=== PATIENT | male | born 1970 | race Caucasian/White ===

== ENCOUNTER 2017-01-23 04:04 | Inpatient (IN) | payer OTHER ==
[~2017-01-23] VITALS: Ht 165.1 cm; Wt 117.0 kg
[~2017-01-23 04:04] MED LIST: AMIODARONE HCL100 MG PO; ATI0.5 PO; DILTIAZEM60 M1 PO; METOPROLOL SUC100 M2 PO; METOPROLOL SUC200 M2 PO; MEV20 PO; TEN25 PO; TOPROL XL200 MG PO; ZES20 PO; ZESTRIL20 MG PO; ZESTRIL5 MG PO
[2017-01-23 04:45] LABS: BASOPHIL % 0.5 % (0-2); PLATELET COUNT 231 x10^3mcL (130-400); RED CELL DISTRIBUTION WIDTH 13.2 % (11.5-14.5)
[2017-01-23 04:48] LABS: CALCIUM 8.3 mg/dL (8.5-10.1); CARBON DIOXIDE 25.8 mmol/L (21-32); CHLORIDE SERUM 107 mmol/L (98-107); CREATININE SERUM 1.1 mg/dL (0.7-1.3); GFR1 > 60 mL/min; GLUCOSE SERUM 101 mg/dL (74-106); POTASSIUM SERUM 3.8 mmol/L (3.5-5.1); SODIUM SERUM 142 mmol/L (136-145)
[2017-01-23 04:51] LABS: AMPHETAMINE QUAL UR NONE DETECTED (NEG <=1000)
[2017-01-23 05:04] LABS: FREE T4 1.37 ng/dL (0.76-1.46)
[2017-01-23] MEDS ORDERED: METOPROLOL SUC200 M2 PO (06:46)
[2017-01-23] MEDS ORDERED: AMIODARONE HCL200 MG PO (06:46)
[2017-01-23] MEDS ORDERED: SIMVASTATIN10 M1 PO (06:47)
[2017-01-23] MEDS ORDERED: GOOD SENSE OMEP20 MG PO (06:47)
[2017-01-23] MEDS ORDERED: LISINOPRIL10 MG PO (06:47)
[2017-01-23] MEDS ORDERED: ASPIR 8181 MG PO (06:47)
[2017-01-23 07:17] LABS: T3 TOTAL 1.44 ng/mL
[2017-01-23 07:22] VITALS: BP 117/75
[2017-01-23 07:41] LABS: PHOSPHOROUS 3.5 mg/dL (2.5-4.9)
[2017-01-23 07:44] LABS: CHOLESTEROL/HDL RATIO 2.4
[2017-01-23 07:51] LABS: FREE T4 1.29 ng/dL (0.76-1.46); T4(THYROXINE) 11.1 ug/dL (4.7-13.3)
[2017-01-23 11:20] VITALS: BP 117/75
== END 2017-01-23 10:35 | disposition left against medical advice (07) | DRG 201 ==
LOC: ED 04:04 → DU 06:30
PROVIDERS: Emergency Medicine; ADMIT Family Medicine
DX: I48.2 Chronic atrial fibrillation (principal); Z68.41 Body mass index [BMI] 40.0-44.9, adult; I10 Essential (primary) hypertension; E03.9 Hypothyroidism, unspecified; K21.9 Gastro-esophageal reflux disease without esophagitis; F41.9 Anxiety disorder, unspecified; E78.5 Hyperlipidemia, unspecified; E66.01 Morbid (severe) obesity due to excess calories; Z53.20 Procedure and treatment not carried out because of patient's decision for unspecified reasons; Z79.82 Long term (current) use of aspirin
CPT/HCPCS: 80307; 83880; 84439; C9113; J2060

== ENCOUNTER 2017-03-05 03:32 | Emergency (ER) | payer OTHER ==
[~2017-03-05 03:32] MED LIST changes: +AMIODARONE HCL200 MG PO; +ASPIR 8181 MG PO; +GOOD SENSE OMEP20 MG PO; +LISINOPRIL10 MG PO; +LORAZEPAM0.5 MG PO; +SIMVASTATIN10 M1 PO; +VITAMIN-D1000 IU PO
[2017-03-05 04:00] LABS: BASOPHIL % 0.4 % (0-2); PLATELET COUNT 218 x10^3mcL (130-400); RED CELL DISTRIBUTION WIDTH 13.2 % (11.5-14.5)
[2017-03-05 04:23] LABS: CALCIUM 8.5 mg/dL (8.5-10.1); CARBON DIOXIDE 25.2 mmol/L (21-32); CHLORIDE SERUM 104 mmol/L (98-107); CREATININE SERUM 1.2 mg/dL (0.7-1.3); GFR1 > 60 mL/min; GLUCOSE SERUM 110 mg/dL (74-106); POTASSIUM SERUM 3.8 mmol/L (3.5-5.1); SODIUM SERUM 137 mmol/L (136-145)
[2017-03-05 04:26] LABS: ALBUMIN 3.1 g/dL (3.4-5.0); ALKALINE PHOSPHATASE 92 U/L (46-116); ALT/SGPT 21 U/L (16-63); AST/SGOT 12 U/L (15-37); BILIRUBIN TOTAL 0.2 mg/dL (0.20-1.00); CHOLESTEROL 129 mg/dL (<200); HDL CHOLESTEROL 54 mg/dL (40-60); PHOSPHOROUS 3.3 mg/dL (2.5-4.9); TOTAL PROTEIN, SERUM 6.9 g/dL (6.4-8.2); URIC ACID 4.8 mg/dL (3.5-7.2)
[2017-03-05 04:47] VITALS: BP 148/76
== END 2017-03-05 04:47 | disposition home or self-care (01) ==
LOC: ED 03:32
PROVIDERS: Emergency Medicine
DX: R00.2 Palpitations (principal); F41.9 Anxiety disorder, unspecified; I48.91 Unspecified atrial fibrillation; E78.5 Hyperlipidemia, unspecified
CPT/HCPCS: 36415; 83880

== ENCOUNTER 2017-05-14 04:44 | Observation (INO) | payer OTHER ==
[~2017-05-14] VITALS: Ht 165.1 cm; Wt 124.4 kg
[2017-05-14 05:22] LABS: BASOPHIL % 0.6 % (0-2); PLATELET COUNT 228 x10^3mcL (130-400); RED CELL DISTRIBUTION WIDTH 13.4 % (11.5-14.5)
[2017-05-14 05:29] LABS: CALCIUM 8.7 mg/dL (8.5-10.1); CARBON DIOXIDE 22.5 mmol/L (21-32); CHLORIDE SERUM 105 mmol/L (98-107); CREATININE SERUM 1.1 mg/dL (0.7-1.3); GFR1 > 60 mL/min; GLUCOSE SERUM 110 mg/dL (74-106); POTASSIUM SERUM 3.9 mmol/L (3.5-5.1); SODIUM SERUM 140 mmol/L (136-145)
[2017-05-14 05:43] LABS: ALBUMIN 3.4 g/dL (3.4-5.0); ALKALINE PHOSPHATASE 99 U/L (46-116); ALT/SGPT 27 U/L (16-63); AST/SGOT 21 U/L (15-37); BILIRUBIN TOTAL 0.33 mg/dL (0.20-1.00); CHOLESTEROL 139 mg/dL (<200); HDL CHOLESTEROL 53 mg/dL (40-60); PHOSPHOROUS 3.7 mg/dL (2.5-4.9); TOTAL PROTEIN, SERUM 7.4 g/dL (6.4-8.2); URIC ACID 5.4 mg/dL (3.5-7.2)
[2017-05-14 08:19] LABS: MAGNESIUM 2.1 mg/dL (1.8-2.4)
[2017-05-14 08:21] VITALS: BP 139/78
[2017-05-14 08:29] LABS: FREE T4 1.45 ng/dL (0.76-1.46); FREE THYROXINE INDEX 4.3 ug/dL (1.4-4.5); T4(THYROXINE) 11.5 ug/dL (4.7-13.3)
[2017-05-14 08:37] LABS: T3 TOTAL 1.28 ng/mL
== END 2017-05-14 09:24 | disposition left against medical advice (07) | DRG 309 ==
LOC: ED 04:44 → DU 06:03
PROVIDERS: Emergency Medicine; ADMIT Family Medicine
DX: I48.0 Paroxysmal atrial fibrillation (principal); Z68.45 Body mass index [BMI] 70 or greater, adult; F41.9 Anxiety disorder, unspecified; K21.9 Gastro-esophageal reflux disease without esophagitis; I10 Essential (primary) hypertension; E78.5 Hyperlipidemia, unspecified; Z79.82 Long term (current) use of aspirin; Z53.29 Procedure and treatment not carried out because of patient's decision for other reasons
CPT/HCPCS: 83880; 84439; G0378; J2060; J7030

== ENCOUNTER 2017-06-05 04:01 | Inpatient (IN) | payer OTHER ==
[~2017-06-05] VITALS: Ht 165.1 cm; Wt 124.7 kg
--- NOTE | 2017-06-05 04:21 | NUR ---
PT C/O PALPITATIONS THAT BEGAN THIS AM. PT STATES GETTING UP TO GO TO THE RESTROOM AND WHEN RETURNING TO BED PT NOTED "HAVING A FIB". PT CHANGED INTO GOWN AND IS IN ROOM TALKING TO NURSE. NO DIFFICULTY BREATHING NOTED AT THIS TIME. PT IN ROOM WAITING TO BE SEEN BY ER MD. NO DISTRESS NOTED AT THIS TIME.
--- NOTE | 2017-06-05 04:25 | NUR ---
DR MARINELLI AT BEDSIDE FOR MSE.
[2017-06-05 04:44] LABS: BASOPHIL % 0.6 % (0-2); PLATELET COUNT 224 x10^3mcL (130-400); RED CELL DISTRIBUTION WIDTH 13.4 % (11.5-14.5)
[2017-06-05 04:52] LABS: CALCIUM 8.5 mg/dL (8.5-10.1); CARBON DIOXIDE 26.7 mmol/L (21-32); CHLORIDE SERUM 104 mmol/L (98-107); GFR1 > 60 mL/min; GLUCOSE SERUM 101 mg/dL (74-106); POTASSIUM SERUM 3.8 mmol/L (3.5-5.1); SODIUM SERUM 138 mmol/L (136-145)
[2017-06-05 05:08] LABS: ALKALINE PHOSPHATASE 82 U/L (46-116); ALT/SGPT 26 U/L (16-63); AST/SGOT 18 U/L (15-37); BILIRUBIN TOTAL 0.28 mg/dL (0.20-1.00); TOTAL PROTEIN, SERUM 7.1 g/dL (6.4-8.2)
[2017-06-05 05:09] LABS: ALBUMIN 3.2 g/dL (3.4-5.0)
--- NOTE | 2017-06-05 05:51 | NUR ---
DR MARINELLI AT BEDSIDE DISCUSSING PLAN OF CARE.
[2017-06-05] MEDS ORDERED: SIMVASTATIN10 M1 PO (05:58)
--- NOTE | 2017-06-05 06:14 | NUR ---
PT GIVEN IV MED PER DR MARINELLI ORDERS. PT EDUCATED ON MED AND VERBALIZED UNDERSTANDING OF TEACHING. IV SITE PATENT WITH NO COMPLICATIONS NOTED. PT DENIES ANY ALLERGIES TO MED. PT AAOX4, BREATHING EVEN AND UNLABORED NOTED AT THIS TIME. MOM AT BEDSIDE.
--- NOTE | 2017-06-05 06:21 | NUR ---
ADMISSION REPORT GIVEN TO LINDSA[facility] BROWN EXT [id number] TO CONTINUE CARE.
--- NOTE | 2017-06-05 06:22 | NUR ---
NIGHT TIME BABYSITTER AT BEDSIDE.
[2017-06-05 06:27] LABS: CHOLESTEROL/HDL RATIO 2.7; PHOSPHOROUS 3.6 mg/dL (2.5-4.9)
--- NOTE | 2017-06-05 07:35 | NUR ---
RECEIVED PT FROM NIGHT NURSE IN NO ACUTE DISTRESS. PT ASLEEP, RESPIRATIONS EVEN AND UNLABORED ON 2L O2 VIA NC. IVF INFUSING AT BEDSIDE. BED IN LOWEST POSITION. CALL LIGHT WITHIN REACH. WILL CONTINUE TO MONITOR.
[2017-06-05 07:52] VITALS: BP 144/78
[2017-06-05 07:55] VITALS: BP 144/78
[2017-06-05 09:22] VITALS: BP 128/70
--- NOTE | 2017-06-05 10:25 | NUR ---
ECHO COMPLETED.DR RODRIGUEZ,HERE TO SEE PT STATES DR KIRKPATRICK TO READ ECHO.
[2017-06-05 10:48] LABS: T3 TOTAL 1.21 ng/mL
[2017-06-05 10:50] LABS: FREE T4 1.58 ng/dL (0.76-1.46); FREE THYROXINE INDEX 4.7 ug/dL (1.4-4.5); T4(THYROXINE) 11.4 ug/dL (4.7-13.3)
--- NOTE | 2017-06-05 11:57 | NUR ---
DR. RODRIGUEZ CAME IN TO TALK TO PT REGARDING TEST RESULTS. PT BECAME VERY UPSET, RAISING HIS VOICE AND STATED "NOBODY CAME IN TO TELL ME EARLIER." YELLING AND TALKING OVER THE DR. PT WANTED TO SIGN AMA, DR. RODRIGUEZ EXPLAINED RISKS TO PT. PT VERY RESISTANT TO EXPLANATION AND REPEATEDLY INTERRUPTING DR. PT INSISTED ON SIGNING AMA. AMA FORM SIGNED AND PLACED IN CHART. IV DC'D INTACT. TELE REMOVED. WILL CONTINUE TO MONITOR.
--- NOTE | 2017-06-05 12:05 | NUR ---
PT LEFT FLOOR AMA. AMA FORM SIGNED AND IN CHART. RESPIRATIONS EVEN AND UNLABORED ON RA. PT AMBULATORY, REFUSED TO BE ESCORTED DOWNSTAIRS. PT WAS EXPLAINED RISKS OF LEAVING BY DR. RODRIGUEZ. IV D/C INTACT. TELE REMOVED. PT GIVEN NEW PRESCRIPTION. INSTRUCTED TO FOLLOW UP WITH PCP.
--- NOTE | 2017-06-05 12:05 | NUR ---
PT LEFT AMA. 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 RX GIVEN REQUESTED BY PT.
== END 2017-06-05 12:07 | disposition left against medical advice (07) | DRG 309 ==
LOC: ED 04:01 → DU 05:49
PROVIDERS: Emergency Medicine; ADMIT Family Medicine
DX: I48.2 Chronic atrial fibrillation (principal); E44.1 Mild protein-calorie malnutrition; Z68.42 Body mass index [BMI] 45.0-49.9, adult; E72.20 Disorder of urea cycle metabolism, unspecified; Z53.21 Procedure and treatment not carried out due to patient leaving prior to being seen by health care provider; E78.5 Hyperlipidemia, unspecified; F41.9 Anxiety disorder, unspecified; E78.00 Pure hypercholesterolemia, unspecified; I10 Essential (primary) hypertension; Z53.29 Procedure and treatment not carried out because of patient's decision for other reasons; Z79.82 Long term (current) use of aspirin; Z79.899 Other long term (current) drug therapy; Z83.3 Family history of diabetes mellitus; Z80.3 Family history of malignant neoplasm of breast; Z82.49 Family history of ischemic heart disease and other diseases of the circulatory system
CPT/HCPCS: 83880; 84439; J2060; J7030; Q0092

== ENCOUNTER 2017-09-25 06:30 | Emergency (ER) | payer OTHER ==
[~2017-09-25] VITALS: Ht 165.1 cm; Wt 121.6 kg
[2017-09-25 06:35] VITALS: Ht 165.1 cm; Wt 121.6 kg
[2017-09-25 08:54] VITALS: BP 122/66
== END 2017-09-25 08:53 | disposition home or self-care (01) ==
LOC: ED 06:30
DX: I48.91 Unspecified atrial fibrillation (principal); E78.5 Hyperlipidemia, unspecified; I10 Essential (primary) hypertension
CPT/HCPCS: J2060

== ENCOUNTER 2017-11-08 05:35 | Emergency (ER) | payer OTHER ==
[~2017-11-08] VITALS: Ht 165.1 cm; Wt 117.6 kg
[2017-11-08 05:38] VITALS: Ht 165.1 cm; Wt 117.6 kg
[2017-11-08 06:33] LABS: CALCIUM 8.7 mg/dL (8.5-10.1); CHLORIDE SERUM 106 mmol/L (98-107); CREATININE SERUM 0.8 mg/dL (0.7-1.3); GFR1 > 60 mL/min; GLUCOSE SERUM 106 mg/dL (74-106); POTASSIUM SERUM 3.6 mmol/L (3.5-5.1); SODIUM SERUM 141 mmol/L (136-145)
[2017-11-08 06:37] LABS: BASOPHIL % 0.5 % (0-2); PLATELET COUNT 235 x10^3mcL (130-400); RED CELL DISTRIBUTION WIDTH 12.3 % (11.5-14.5)
[2017-11-08 06:46] LABS: FREE T4 2.54 ng/dL (0.76-1.46); MAGNESIUM 1.9 mg/dL (1.8-2.4)
[2017-11-08 06:50] VITALS: BP 111/74
== END 2017-11-08 07:16 | disposition home or self-care (01) ==
LOC: ED 05:35
PROVIDERS: Emergency Medicine
DX: I48.0 Paroxysmal atrial fibrillation (principal); I10 Essential (primary) hypertension; E78.00 Pure hypercholesterolemia, unspecified; E78.5 Hyperlipidemia, unspecified; Z86.79 Personal history of other diseases of the circulatory system
CPT/HCPCS: 36415; 84439

== ENCOUNTER 2017-12-02 05:40 | Emergency (ER) | payer OTHER ==
[~2017-12-02] VITALS: Ht 165.1 cm; Wt 118.8 kg
[2017-12-02 05:46] VITALS: Ht 165.1 cm; Wt 118.8 kg
[2017-12-02 07:05] LABS: BASOPHIL % 0.6 % (0-2); PLATELET COUNT 233 x10^3mcL (130-400); RED CELL DISTRIBUTION WIDTH 12.7 % (11.5-14.5)
[2017-12-02 07:17] LABS: T3 TOTAL 1.9 ng/mL
[2017-12-02 07:19] LABS: FREE THYROXINE INDEX 4.3 ug/dL (1.4-4.5); T4(THYROXINE) 12.4 ug/dL (4.7-13.3)
[2017-12-02 07:43] LABS: ALBUMIN 3.3 g/dL (3.4-5.0); ALKALINE PHOSPHATASE 84 U/L (46-116); ALT/SGPT 39 U/L (16-63); AST/SGOT 24 U/L (15-37); BILIRUBIN TOTAL 0.81 mg/dL (0.20-1.00); CALCIUM 9.2 mg/dL (8.5-10.1); CARBON DIOXIDE 27.6 mmol/L (21-32); CHLORIDE SERUM 106 mmol/L (98-107); CHOLESTEROL 126 mg/dL (<200); CHOLESTEROL/HDL RATIO 2.6; CREATININE SERUM 0.9 mg/dL (0.7-1.3); GFR1 > 60 mL/min; HDL CHOLESTEROL 48 mg/dL (40-60); LIPASE 110 IU/L (73-393); POTASSIUM SERUM 4.1 mmol/L (3.5-5.1); SODIUM SERUM 141 mmol/L (136-145); TOTAL PROTEIN, SERUM 7.1 g/dL (6.4-8.2); TRIGLYCERIDES 50 mg/dL (<150)
[2017-12-02 07:47] LABS: GLUCOSE SERUM 105 mg/dL (74-106)
[2017-12-02 09:08] VITALS: BP 95/56
== END 2017-12-02 09:08 | disposition home or self-care (01) ==
LOC: ED 05:40
PROVIDERS: Specialist
DX: I48.0 Paroxysmal atrial fibrillation (principal); I10 Essential (primary) hypertension; E78.00 Pure hypercholesterolemia, unspecified
CPT/HCPCS: 83880; 84439; J2060; J3490; J7030; Q0092

== ENCOUNTER 2017-12-27 12:57 | Emergency (ER) | payer OTHER ==
[~2017-12-27] VITALS: Ht 167.6 cm; Wt 118.4 kg
[2017-12-27 12:58] VITALS: Ht 167.6 cm; Wt 118.4 kg
[2017-12-27 13:34] LABS: BASOPHIL % 0.5 % (0-2); PLATELET COUNT 224 x10^3mcL (130-400); RED CELL DISTRIBUTION WIDTH 13.6 % (11.5-14.5)
[2017-12-27 13:38] LABS: CALCIUM 8.9 mg/dL (8.5-10.1); CARBON DIOXIDE 28.5 mmol/L (21-32); CHLORIDE SERUM 103 mmol/L (98-107); GFR1 > 60 mL/min; GLUCOSE SERUM 102 mg/dL (74-106); POTASSIUM SERUM 4.1 mmol/L (3.5-5.1); SODIUM SERUM 138 mmol/L (136-145)
[2017-12-27 13:42] LABS: ALKALINE PHOSPHATASE 83 U/L (46-116); ALT/SGPT 34 U/L (16-63); AST/SGOT 23 U/L (15-37); BILIRUBIN TOTAL 0.36 mg/dL (0.20-1.00); TOTAL PROTEIN, SERUM 7.2 g/dL (6.4-8.2)
[2017-12-27 13:43] LABS: ALBUMIN 3.3 g/dL (3.4-5.0)
[2017-12-27 14:07] VITALS: BP 131/84
== END 2017-12-27 15:25 | disposition home or self-care (01) ==
LOC: ED 12:57
PROVIDERS: Emergency Medicine
DX: F41.9 Anxiety disorder, unspecified (principal); I48.91 Unspecified atrial fibrillation; E78.5 Hyperlipidemia, unspecified; E78.00 Pure hypercholesterolemia, unspecified; I10 Essential (primary) hypertension; Z86.79 Personal history of other diseases of the circulatory system
CPT/HCPCS: 83880; J2060

== ENCOUNTER 2018-01-21 22:05 | Emergency (ER) | payer OTHER ==
[~2018-01-21] VITALS: Ht 172.7 cm; Wt 116.6 kg
[2018-01-21 22:09] VITALS: Ht 172.7 cm; Wt 116.6 kg
[2018-01-22 00:09] LABS: BASOPHIL % 0.6 % (0-2); PLATELET COUNT 237 x10^3mcL (130-400); RED CELL DISTRIBUTION WIDTH 13.5 % (11.5-14.5)
[2018-01-22 00:22] LABS: CALCIUM 8.5 mg/dL (8.5-10.1); CARBON DIOXIDE 27.9 mmol/L (21-32); CHLORIDE SERUM 106 mmol/L (98-107); GFR1 > 60 mL/min; GLUCOSE SERUM 110 mg/dL (74-106); POTASSIUM SERUM 3.9 mmol/L (3.5-5.1); SODIUM SERUM 139 mmol/L (136-145)
[2018-01-22 00:25] LABS: AMPHETAMINE QUAL UR NONE DETECTED (NEG <=1000)
[2018-01-22 01:45] VITALS: BP 107/65
== END 2018-01-22 01:45 | disposition home or self-care (01) ==
LOC: ED 22:05
PROVIDERS: Emergency Medicine
DX: I48.91 Unspecified atrial fibrillation (principal); I10 Essential (primary) hypertension; E78.00 Pure hypercholesterolemia, unspecified; E78.5 Hyperlipidemia, unspecified
CPT/HCPCS: 36415; 83880; 84439; J7030

== ENCOUNTER 2018-02-14 12:01 | Emergency (ER) | payer OTHER ==
[~2018-02-14] VITALS: Ht 167.6 cm; Wt 117.9 kg
[2018-02-14 12:03] VITALS: Ht 167.6 cm; Wt 117.9 kg
[2018-02-14 12:45] VITALS: BP 136/84
== END 2018-02-14 12:45 | disposition home or self-care (01) ==
LOC: ED 12:01
DX: R00.2 Palpitations (principal); I10 Essential (primary) hypertension

== ENCOUNTER 2018-05-09 06:19 | Emergency (ER) | payer OTHER ==
[2018-05-09 07:23] LABS: BASOPHIL % 0.4 % (0-2); PLATELET COUNT 223 x10^3mcL (130-400); RED CELL DISTRIBUTION WIDTH 13.3 % (11.5-14.5)
[2018-05-09 07:30] LABS: CALCIUM 8.6 mg/dL (8.5-10.1); CARBON DIOXIDE 25.8 mmol/L (21-32); CHLORIDE SERUM 105 mmol/L (98-107); CREATININE SERUM 0.8 mg/dL (0.7-1.3); GFR1 > 60 mL/min; GLUCOSE SERUM 107 mg/dL (74-106); POTASSIUM SERUM 3.8 mmol/L (3.5-5.1); SODIUM SERUM 139 mmol/L (136-145)
[2018-05-09 07:36] LABS: ALBUMIN 3.1 g/dL (3.4-5.0); ALKALINE PHOSPHATASE 87 U/L (46-116); ALT/SGPT 20 U/L (16-63); AST/SGOT 15 U/L (15-37); BILIRUBIN TOTAL 0.5 mg/dL (0.20-1.00); CHOLESTEROL 125 mg/dL (<200); HDL CHOLESTEROL 47 mg/dL (40-60); PHOSPHOROUS 2.9 mg/dL (2.5-4.9); TOTAL PROTEIN, SERUM 6.9 g/dL (6.4-8.2); URIC ACID 5.6 mg/dL (3.5-7.2)
[2018-05-09 08:10] VITALS: BP 128/72
== END 2018-05-09 08:10 | disposition home or self-care (01) ==
LOC: ED 06:19
PROVIDERS: Emergency Medicine
DX: R00.2 Palpitations (principal); I49.9 Cardiac arrhythmia, unspecified; I10 Essential (primary) hypertension; E78.5 Hyperlipidemia, unspecified; E78.00 Pure hypercholesterolemia, unspecified; F41.9 Anxiety disorder, unspecified
CPT/HCPCS: 36415

== ENCOUNTER 2018-09-17 05:07 | Emergency (ER) | payer OTHER ==
[~2018-09-17] VITALS: Ht 165.1 cm; Wt 117.0 kg
[2018-09-17 05:10] VITALS: Ht 165.1 cm; Wt 117.0 kg
[2018-09-17 06:38] VITALS: BP 120/79
== END 2018-09-17 06:38 | disposition home or self-care (01) ==
LOC: ED 05:07
DX: R00.2 Palpitations (principal); I10 Essential (primary) hypertension; I48.91 Unspecified atrial fibrillation

== ENCOUNTER 2018-11-04 01:41 | Emergency (ER) | payer OTHER ==
[~2018-11-04] VITALS: Ht 165.1 cm; Wt 120.7 kg
[2018-11-04 01:43] VITALS: Ht 165.1 cm; Wt 120.7 kg
[2018-11-04 02:20] VITALS: BP 153/96
== END 2018-11-04 02:20 | disposition home or self-care (01) ==
LOC: ED 01:41
DX: R00.2 Palpitations (principal); I49.9 Cardiac arrhythmia, unspecified; I10 Essential (primary) hypertension; E78.5 Hyperlipidemia, unspecified; F41.9 Anxiety disorder, unspecified; I48.91 Unspecified atrial fibrillation

== ENCOUNTER 2018-12-26 19:25 | Emergency (ER) | payer OTHER ==
[~2018-12-26] VITALS: Ht 165.1 cm; Wt 118.8 kg
[2018-12-26 20:15] LABS: BASOPHIL % 0.8 % (0-2); PLATELET COUNT 234 x10^3mcL (130-400); RED CELL DISTRIBUTION WIDTH 13.3 % (11.5-14.5)
[2018-12-26 20:20] LABS: CALCIUM 8.4 mg/dL (8.5-10.1); CARBON DIOXIDE 26.7 mmol/L (21-32); CHLORIDE SERUM 104 mmol/L (98-107); GFR1 > 60 mL/min; GLUCOSE SERUM 114 mg/dL (74-106); POTASSIUM SERUM 3.4 mmol/L (3.5-5.1); SODIUM SERUM 137 mmol/L (136-145)
[2018-12-26 20:25] LABS: ALKALINE PHOSPHATASE 110 U/L (46-116); ALT/SGPT 21 U/L (16-63); AST/SGOT 16 U/L (15-37); BILIRUBIN TOTAL 0.29 mg/dL (0.20-1.00); TOTAL PROTEIN, SERUM 7.1 g/dL (6.4-8.2)
[2018-12-26 20:29] LABS: ALBUMIN 3.3 g/dL (3.4-5.0)
[2018-12-26 21:07] VITALS: BP 128/87
== END 2018-12-26 21:07 | disposition home or self-care (01) ==
LOC: ED 19:25
PROVIDERS: Emergency Medicine
DX: R00.2 Palpitations (principal); K42.9 Umbilical hernia without obstruction or gangrene; I10 Essential (primary) hypertension; I48.91 Unspecified atrial fibrillation; E78.5 Hyperlipidemia, unspecified; F41.9 Anxiety disorder, unspecified; E78.00 Pure hypercholesterolemia, unspecified; Z98.890 Other specified postprocedural states
CPT/HCPCS: 36415; Q0092

== ENCOUNTER 2019-04-03 03:18 | Emergency (ER) | payer OTHER ==
[~2019-04-03] VITALS: Ht 165.1 cm; Wt 122.5 kg
[2019-04-03 03:24] VITALS: Ht 165.1 cm; Wt 122.5 kg
[2019-04-03 04:54] LABS: BASOPHIL % 0.6 % (0-2); PLATELET COUNT 232 x10^3mcL (130-400); RED CELL DISTRIBUTION WIDTH 13.6 % (11.5-14.5)
[2019-04-03 05:14] LABS: CALCIUM 9.2 mg/dL (8.5-10.1); CARBON DIOXIDE 25.1 mmol/L (21-32); CHLORIDE SERUM 106 mmol/L (98-107); CREATININE SERUM 0.9 mg/dL (0.7-1.3); GFR1 > 60 mL/min; GLUCOSE SERUM 116 mg/dL (74-106); POTASSIUM SERUM 3.9 mmol/L (3.5-5.1); SODIUM SERUM 141 mmol/L (136-145)
[2019-04-03 05:18] LABS: ALBUMIN 3.4 g/dL (3.4-5.0); ALKALINE PHOSPHATASE 110 U/L (46-116); ALT/SGPT 25 U/L (16-63); AST/SGOT 11 U/L (15-37); BILIRUBIN TOTAL 0.28 mg/dL (0.20-1.00); TOTAL PROTEIN, SERUM 6.9 g/dL (6.4-8.2)
[2019-04-03 06:12] VITALS: BP 123/84
== END 2019-04-03 06:12 | disposition home or self-care (01) ==
LOC: ED 03:18
PROVIDERS: Emergency Medicine
DX: R00.2 Palpitations (principal); I10 Essential (primary) hypertension; E78.5 Hyperlipidemia, unspecified; F41.9 Anxiety disorder, unspecified; E78.00 Pure hypercholesterolemia, unspecified
CPT/HCPCS: 36415; Q0092

== ENCOUNTER 2019-11-04 05:12 | Emergency (ER) | payer OTHER ==
[~2019-11-04] VITALS: Ht 167.6 cm; Wt 118.4 kg
[2019-11-04 05:23] VITALS: Ht 167.6 cm; Wt 118.4 kg
[2019-11-04 07:44] LABS: BASOPHIL % 0.3 % (0-2); PLATELET COUNT 223 x10^3mcL (130-400); RED CELL DISTRIBUTION WIDTH 12.9 % (11.5-14.5)
[2019-11-04 08:14] LABS: CALCIUM 8.2 mg/dL (8.5-10.1); CARBON DIOXIDE 26.9 mmol/L (21-32); CHLORIDE SERUM 103 mmol/L (98-107); CREATININE SERUM 0.9 mg/dL (0.7-1.3); GFR1 > 60 mL/min; GLUCOSE SERUM 121 mg/dL (74-106); POTASSIUM SERUM 3.8 mmol/L (3.5-5.1); SODIUM SERUM 138 mmol/L (136-145)
[2019-11-04 08:27] LABS: ALKALINE PHOSPHATASE 88 U/L (46-116); ALT/SGPT 21 U/L (16-63); AST/SGOT 16 U/L (15-37); BILIRUBIN TOTAL 0.4 mg/dL (0.20-1.00); HDL CHOLESTEROL 36 mg/dL (40-60); LIPASE 89 IU/L (73-393); MAGNESIUM 2.1 mg/dL (1.8-2.4); T4(THYROXINE) 7.3 ug/dL (4.7-13.3); TOTAL PROTEIN, SERUM 6.9 g/dL (6.4-8.2)
[2019-11-04 08:30] LABS: ALBUMIN 3.1 g/dL (3.4-5.0); CHOLESTEROL 118 mg/dL (<200)
[2019-11-04 09:18] VITALS: BP 109/71
== END 2019-11-04 09:18 | disposition left against medical advice (07) ==
LOC: ED 05:12
PROVIDERS: Emergency Medicine
DX: R00.2 Palpitations (principal); E46 Unspecified protein-calorie malnutrition; E66.01 Morbid (severe) obesity due to excess calories; I10 Essential (primary) hypertension; E78.00 Pure hypercholesterolemia, unspecified; I48.91 Unspecified atrial fibrillation; E78.5 Hyperlipidemia, unspecified; Z68.41 Body mass index [BMI] 40.0-44.9, adult; Z98.890 Other specified postprocedural states
CPT/HCPCS: 36415; 83880; Q0092

== ENCOUNTER 2020-07-10 16:58 | Emergency (ER) | payer OTHER, SELFPAY ==
[~2020-07-10] VITALS: Ht 165.1 cm; Wt 115.2 kg
[2020-07-10 17:00] VITALS: Ht 165.1 cm; Wt 115.2 kg
[2020-07-10 19:01] VITALS: BP 127/69
== END 2020-07-10 19:01 | disposition home or self-care (01) ==
LOC: ED 16:58
DX: L03.116 Cellulitis of left lower limb (principal); I49.9 Cardiac arrhythmia, unspecified; I10 Essential (primary) hypertension; E78.5 Hyperlipidemia, unspecified; E78.00 Pure hypercholesterolemia, unspecified; Z20.828 Contact with and (suspected) exposure to other viral communicable diseases
CPT/HCPCS: U0003-CS

== ENCOUNTER 2020-10-29 04:11 | Emergency (ER) | payer OTHER ==
[~2020-10-29] VITALS: Ht 165.1 cm; Wt 122.9 kg
[2020-10-29 04:21] VITALS: Ht 165.1 cm; Wt 122.9 kg
[2020-10-29 04:50] LABS: BASOPHIL % 0.9 % (0.2-1.5); PLATELET COUNT 224 x10^3mcL (152-348); RED CELL DISTRIBUTION WIDTH 13.2 % (12.1-16.2)
[2020-10-29 05:09] LABS: CALCIUM 8.6 mg/dL (8.5-10.1); CHLORIDE SERUM 103 mmol/L (98-107); GFR1 > 60 mL/min; GLUCOSE SERUM 110 mg/dL (74-106); POTASSIUM SERUM 3.9 mmol/L (3.5-5.1); SODIUM SERUM 136 mmol/L (136-145)
[2020-10-29 05:22] LABS: ALKALINE PHOSPHATASE 88 U/L (46-116); ALT/SGPT 23 U/L (16-63); AST/SGOT 17 U/L (15-37); BILIRUBIN TOTAL 0.24 mg/dL (0.20-1.00); CARBON DIOXIDE 26.8 mmol/L (21-32); TOTAL PROTEIN, SERUM 7.3 g/dL (6.4-8.2)
[2020-10-29 05:33] LABS: ALBUMIN 3.3 g/dL (3.4-5.0)
[2020-10-29 06:01] VITALS: BP 105/63
== END 2020-10-29 06:01 | disposition home or self-care (01) ==
LOC: ED 04:11
PROVIDERS: Emergency Medicine
DX: R07.89 Other chest pain (principal); I48.91 Unspecified atrial fibrillation; I10 Essential (primary) hypertension; E78.00 Pure hypercholesterolemia, unspecified; Z98.890 Other specified postprocedural states